=== PATIENT | female | born 1985 | race African-American/Black ===

== ENCOUNTER 2017-12-16 23:32 | Emergency (ER) | payer OTHER ==
[~2017-12-16] VITALS: Ht 165.1 cm; Wt 55.0 kg
[2017-12-17 00:08] VITALS: BP 122/78; PULSE 86; RESP 16; TEMP 98.3; O2SAT 99
[2017-12-17] MEDS ORDERED: SODIUM CHLOR 0.9% 1000 ML INJ 1,000 ML IV SCH (00:46)
--- NOTE | 2017-12-17 00:49 | PD ---
HPI Chief Complaint: Abdominal Pain Time Seen by Provider: 00:39 Travel History International Travel<30 days: No Contact w/Intl Traveler<30days: No Traveled to known affect area: No History of Present Illness HPI 32-year-old female here for evaluation of abdominal pain, nausea, and vomiting. Abdominal pain started yesterday and is epigastric, described as cramping, moderate. Patient reports that she started vomiting today. Emesis is nonbloody. She also reports starting to have dysuria today. She also mentions that she has had some vaginal discharge for the last 2 weeks. She is sexually active with one partner, but is unsure if the relationship is monogamous. No fevers. History of 2 sections. No other abdominal surgeries. [facility] Past Medical History Immunizations Current: Yes Tetanus Vaccination: Unknown Influenza Vaccination: No ?: Unknown LMP: 11/25/17 Social History Alcohol Use: No Tobacco Use: No Substance Use: No Allergies-Medications (Allergen,Severity, Reaction): Coded Allergies: No Known Allergies (Unverified , 12/17/17) Review of Systems Except as stated in HPI: all other systems reviewed are Neg Physical Exam Narrative GENERAL: Well-developed, well-nourished, comfortable, no apparent distress. SKIN: Focused skin assessment warm/dry. HEAD: Atraumatic. Normocephalic. EYES: Pupils equal and round. No scleral icterus. No injection or drainage. ENT: No nasal bleeding or discharge. Mucous membranes pink and moist. NECK: Trachea midline. No JVD. CARDIOVASCULAR: Regular rate and rhythm. No murmur appreciated. RESPIRATORY: No accessory muscle use. Clear to auscultation. Breath sounds equal bilaterally. GASTROINTESTINAL: Abdomen soft, nondistended. Mild epigastric tenderness without peritoneal signs. Normal bowel sounds. [employer]: Exam performed in the presence of a female nurse. Scant/[id number]/ physiologic vaginal discharge. Normal-appearing cervix. Moderate uterine tenderness. No adnexal masses or tenderness. MUSCULOSKELETAL: No obvious deformities. No clubbing. No cyanosis. No edema. NEUROLOGICAL: Awake and alert. No obvious cranial nerve deficits. Motor grossly within normal limits. Normal speech. PSYCHIATRIC: Appropriate mood and affect; insight and judgment normal. Data Data Last Documented VS Vital Signs Date Time Temp Pulse Resp B/P (MAP) Pulse Ox O2 Delivery O2 Flow Rate FiO2 12/17/17 01:01 16 100 Room Air 12/17/17 00:08 98.3 86 122/78 (93) Orders Orders Complete Blood Count With Diff (12/17/17 00:46) Comprehensive Metabolic Panel (12/17/17 00:46) Lipase (12/17/17 00:46) Prothrombin Time / Inr (Pt) (12/17/17 00:46) Act Partial Throm Time (Ptt) (12/17/17 00:46) Urinalysis - C+S If Indicated (12/17/17 00:46) Iv Access Insert/Monitor (12/17/17 00:46) Ecg Monitoring (12/17/17 00:46) Oximetry (12/17/17 00:46) Ondansetron Inj (Zofran Inj) (12/17/17 01:00) Sodium Chlor 0.9% 1000 Ml Inj (Ns 1000 M (12/17/17 00:46) Sodium Chloride 0.9% Flush (Ns Flush) (12/17/17 01:00) Al-Mag Hy-Si 40-40-4 Mg/Ml Liq (Mag-Al P (12/17/17 01:00) Lidocaine 2% Viscous (Xylocaine 2% Visco (12/17/17 01:00) Ed Urine Pregnancytest Poc (12/17/17 00:46) Gc And Chlamydia Pcr (12/17/17 00:46) Wet Prep Profile (12/17/17 00:46) Urine Culture (12/17/17 00:50) Ct Abd/Pel W Iv Contrast(Rout) (12/17/17 02:30) Diatrizoate Liq ( Gastroview Liq) (12/17/17 02:30) Azithromycin Powd Pack (Zithromax Powd P (12/17/17 02:30) Ceftriaxone Inj (Rocephin Inj) (12/17/17 02:30) Lidocaine 1% Inj (50 Ml) (Xylocaine 1% I (12/17/17 02:30) Oral Contrast - Adult (12/17/17 02:33) Metronidazole (Flagyl) (12/17/17 03:45) Iohexol 350 Inj (Omnipaque 350 Inj) (12/17/17 04:27) Labs Laboratory Tests Test 12/17/17 00:50 12/17/17 01:00 12/17/17 02:30 Urine Color YELLOW Urine Turbidity HAZY Urine pH 5.5 Urine Specific [place] 1.023 Urine Protein TRACE mg/dL Urine Glucose (UA) NEG mg/dL Urine Ketones NEG mg/dL Urine Occult Blood TRACE Urine Nitrite NEG Urine Bilirubin NEG Urine Urobilinogen 4.0 MG/DL Urine Leukocyte Esterase MOD Urine RBC 7 /hpf Urine WBC 10 /hpf Urine Squamous Epithelial Cells 7 /hpf Urine Bacteria RARE /hpf Microscopic Urinalysis Comment CULTURE INDICATED White Blood Count 11.0 TH/MM3 Red Blood Count 4.55 MIL/MM3 Hemoglobin 12.8 GM/DL Hematocrit 38.1 % Mean Corpuscular Volume 83.7 FL Mean Corpuscular Hemoglobin 28.0 PG Mean Corpuscular Hemoglobin Concent 33.5 % Red Cell Distribution Width 15.9 % Platelet Count 230 TH/MM3 Mean Platelet Volume 9.6 FL Neutrophils (%) (Auto) 51.4 % Lymphocytes (%) (Auto) 42.0 % Monocytes (%) (Auto) 4.9 % Eosinophils (%) (Auto) 0.8 % Basophils (%) (Auto) 0.9 % Neutrophils # (Auto) 5.7 TH/MM3 Lymphocytes # (Auto) 4.6 TH/MM3 Monocytes # (Auto) 0.5 TH/MM3 Eosinophils # (Auto) 0.1 TH/MM3 Basophils # (Auto) 0.1 TH/MM3 CBC Comment DIFF FINAL Differential Comment Prothrombin Time 11.2 SEC Prothromb Time International Ratio 1.1 RATIO Activated Partial Thromboplast Time 26.4 SEC Blood Urea Nitrogen 7 MG/DL Creatinine 0.74 MG/DL Random Glucose 93 MG/DL Total Protein 7.6 GM/DL Albumin 3.5 GM/DL Calcium Level 8.3 MG/DL Alkaline Phosphatase 67 U/L Aspartate Amino Transf (AST/SGOT) 15 U/L Alanine Aminotransferase (ALT/SGPT) 12 U/L Total Bilirubin 0.3 MG/DL Sodium Level 139 MEQ/L Potassium Level 3.4 MEQ/L Chloride Level 108 MEQ/L Carbon Dioxide Level 23.3 MEQ/L Anion Gap 8 MEQ/L Estimat Glomerular Filtration Rate 109 ML/MIN Lipase 161 U/L Clue Cells (Wet Prep) PRESENT Vaginal Trichomonas (Wet Prep) PRESENT Vaginal Yeast (Wet Prep) NONE SEEN MDM Medical Decision Making Medical Screen Exam Complete: Yes Emergency Medical Condition: Yes Differential Diagnosis Nausea and vomiting, gastritis, peptic ulcer disease, hepatobiliary disease, pancreatitis, , UTI, PID, BV Narrative Course Vital signs reviewed. CBC is unremarkable. CMP is essentially unremarkable. Lipase is 161. UA suggestive of UTI. Wet prep is positive for clue cells and Trichomonas. The patient was empirically treated for gonorrhea and chlamydia with IM Rocephin and oral azithromycin. She was also given 2 g of oral Flagyl. CT abdomen pelvis shows no acute findings in the abdomen and pelvis. The patient was made aware of all findings. She is resting comfortably. She will be discharged home with a prescription for Flagyl. She was advised to make all sexual partners aware of her diagnoses and to seek treatment. She has an [employer] physician whom she can follow-up with this week. She was advised on when to return to the emergency department. She verbalizes understanding and agreement with plan. Diagnosis Primary Impression: PID (acute pelvic inflammatory disease) Additional Impressions: Trichomonas vaginalis infection Bacterial vaginosis Referrals: [facility] [facility] 3 days Additional Instructions: Follow-up with your [employer] physician this week. Return to the emergency department for worsening symptoms or any other concerns. Scripts Metronidazole (Flagyl) 500 Mg Tab 500 MG PO BID for Infection for 7 Days, #14 TAB 0 Refills Prov: Percy Mectalf MD 12/17/17 Disposition: 01 DISCHARGE HOME Condition: Stable Percy Metcalf MD Dec 17, 2017 00:49
[2017-12-17] MEDS ORDERED: ALUMINUM/MAGNESIUM/SIMETH 30 ML CUP PO ONE (01:00)
[2017-12-17] MEDS ORDERED: LIDOCAINE VISCOUS 2% SOLN 15 ML UDC PO ONE (01:00)
[2017-12-17] MEDS ORDERED: SODIUM CHLORIDE 0.9% FLUSH 10 ML FLUSH IV FLUSH PRN (01:00)
[2017-12-17] MEDS ORDERED: ONDANSETRON HCL 4 MG/2 ML VIAL IVP ONE (01:00)
[2017-12-17 01:01] VITALS: RESP 16; O2SAT 100
[2017-12-17 01:18] LABS: AUTOMATED NEUTROPHIL # 5.7 TH/MM3 (1.8-7.7); BASOPHIL # 0.1 TH/MM3 (0-0.2); BASOPHIL % 0.9 % (0.0-2.0); EOSINOPHIL # 0.1 TH/MM3 (0-0.4); EOSINOPHIL % 0.8 % (0.0-4.0); HEMATOCRIT 38.1 % (35.0-46.0); HEMOGLOBIN 12.8 GM/DL (11.6-15.3); LYMPHOCYTE # 4.6 TH/MM3 (1.0-4.8); MEAN CELL VOLUME 83.7 FL (80.0-100.0); MEAN CORPUSCULAR HGB CONC 33.5 % (32.0-36.0); MEAN PLATELET VOLUME 9.6 FL (7.0-11.0); MONO % 4.9 % (0.0-8.0); MONOCYTE # 0.5 TH/MM3 (0-0.9); NEUT % 51.4 % (16.0-70.0); PLATELET COUNT 230 TH/MM3 (150-450); RED BLOOD COUNT 4.55 MIL/MM3 (4.00-5.30); RED CELL DISTRIBUTION WIDTH 15.9 % (11.6-17.2)
[2017-12-17 01:26] LABS: BACTERIA, URINE RARE /hpf; BILIRUBIN, URINE NEG (NEG); BLOOD, URINE TRACE (NEG); GLUCOSE,URINE NEG (NEG); KETONE, URINE NEG (NEG); NITRITE,URINE NEG (NEG); PH, URINE 5.5 (5.0-8.5); SQUAMOUS EPITHELIAL CELL URINE 7 /hpf (0-5); URINE COLOR YELLOW (YELLW/STRAW); URINE LEUKOCYTE ESTERASE MOD (NEG)
[2017-12-17 01:26] LABS: INTERNATIONAL NORMALIZED RATIO 1.1 RATIO; PROTHROMBIN TIME - PATIENT 11.2 SEC (9.8-11.6)
[2017-12-17 01:32] LABS: ALBUMIN 3.5 GM/DL (3.4-5.0); ALT (GPT) 12 U/L (10-53); AST (GOT) 15 U/L (15-37); BICARBONATE 23.3 MEQ/L (21.0-32.0); BLOOD UREA NITROGEN 7 MG/DL (7-18); CALCIUM 8.3 MG/DL (8.5-10.1); CHLORIDE 108 MEQ/L (98-107); CREATININE 0.74 MG/DL (0.50-1.00); GLOMERULAR FILTRATION RATE 109 ML/MIN (>89); GLUCOSE,RANDOM 93 MG/DL (74-106); SODIUM (NA) 139 MEQ/L (136-145)
[2017-12-17 01:34] LABS: ALKALINE PHOSPHATASE 67 U/L (45-117); TOTAL BILIRUBIN ADULT 0.3 MG/DL (0.2-1.0); TOTAL PROTEIN 7.6 GM/DL (6.4-8.2)
[2017-12-17] MEDS ORDERED: DIATRIZOATE MEGLUM/DIATRIZOATE SOD 9 ML CUP PO ONE (02:30)
[2017-12-17] MEDS ORDERED: LIDOCAINE HCL 1% 50 ML VIAL IM ONE (02:30)
[2017-12-17] MEDS ORDERED: AZITHROMYCIN PWD FOR SUSP 1 GM PACKET PO ONE (02:30)
[2017-12-17] MEDS ORDERED: cefTRIAXone 250 MG VIAL IM ONE (02:30)
[2017-12-17] MEDS ORDERED: metroNIDAZOLE 500 MG TAB PO ONE (03:45)
[2017-12-17] MEDS ORDERED: IOHEXOL 350 MG/ML 10 ML VIAL (for RAD DIAG) IVCONTRAST ONE (04:27)
--- NOTE | 2017-12-17 04:45 | RADRPT ---
EXAM DATE/TIME: 12/17/2017 04:21 [place] COMPARISON: No previous studies available for comparison. INDICATIONS : Epigastric abdominal pain with vomiting. IV CONTRAST: 100 cc Omnipaque 350 (iohexol) IV Injection Site: Rt AC Lot: [id number] Exp Date: Sep 2020 Lot: Exp Date : ORAL CONTRAST: Prescribed oral contrast ingested. RADIATION DOSE: 6.64 CTDIvol (mGy) MEDICAL HISTORY : None SURGICAL HISTORY : section. ENCOUNTER: Initial ACUITY: 1 day PAIN SCALE: 6/10 LOCATION: Abdomen. TECHNIQUE: Volumetric scanning of the abdomen and pelvis was performed. Using automated exposure control and ad justment of the mA and/or kV according to patient size, radiation dose was kept as low as reasonably achievable to obtain optimal diagnostic quality images. DICOM format image data is available electro nically for review and comparison. FINDINGS: LOWER LUNGS: The visualized lower lungs are clear. LIVER: Homogeneous density without lesion. There is no dilation of the biliary tree. No calcified gallston es. SPLEEN: Normal size without lesion. PANCREAS: Within normal limits. KIDNEYS: Normal in size and shape. There is no mass, stone or hydronephrosis. ADRENAL GLANDS: Within normal limits. VASCULAR: There is no aortic aneurysm. BOWEL/MESENTERY: No evidence of bowel dilatation. No free air or free fluid. Appendix within normal limits. ABDOMINAL WALL: Within normal limits. RETROPERITONEUM: There is no lymphadenopathy. BLADDER: No wall thickening or mass. REPRODUCTIVE: Within normal limits. INGUINAL: There is no lymphadenopathy or hernia. MUSCULOSKELETAL: Within normal limits for patient age. CONCLUSION: No acute findings in the abdomen and pelvis. Tolu Rivero MD on December 17, 2017 at 4:34 Board Certified Radiologist. This report was verified electronically.
[2017-12-17] MEDS ORDERED: METR-1 PO (04:52)
== END 2017-12-17 05:50 | disposition home or self-care (01) ==
LOC: NEPC 23:32
DX: N73.9 Female pelvic inflammatory disease, unspecified (principal); A59.01 Trichomonal vulvovaginitis
CPT/HCPCS: 74177; 80053; 81001; 83690; 84703; 85025; 85610; 85730; 87086; 87210; 87491; 87591; 96361; 96372; 96374; 99284; J0696; J2405; J7030; Q9963; Q9967